=== PATIENT | female | born 1995 | race Caucasian/White ===

== ENCOUNTER 2023-07-04 08:03 | Emergency (ER) | payer MEDICAID ==
[~2023-07-04] VITALS: Ht 160 cm; Wt 83.4 kg
[~2023-07-04 08:03] MED LIST: AZITHROMYCIN250 MG PO; IBUPROFEN400 MG PO; PROVENTIL HFA6.7 GM INH; TUSSIONEX PENN480 ML PO; ZITHROMAX250 MG PO
[2023-07-04] MEDS ORDERED: AMOXICILLIN/CLAVULANATE K 875 MG TAB PO ONE (09:00)
[2023-07-04] MEDS ORDERED: TETANUS-DIPHTHERIA TOXOIDS/PF 0.5 ML VIAL IM ONE (09:00)
[2023-07-04] MEDS ORDERED: DIPHTH,PERTUSS(ACELL),TET VAC 0.5 ML SYRINGE IM ONE (09:15)
[2023-07-04] MEDS ORDERED: AMOX TR-K CLV1 EAC1 PO (09:48)
[2023-07-04 09:54] VITALS: BP 122/80
[2023-07-05] MEDS ORDERED: AMOXICILLIN/CLAVULANATE K 875 MG TAB PO SCH
== END 2023-07-04 09:54 | disposition home or self-care (01) ==
LOC: ED 08:03
DX: S60.450A Superficial foreign body of right index finger, initial encounter (principal); L08.9 Local infection of the skin and subcutaneous tissue, unspecified; W45.8XXA Other foreign body or object entering through skin, initial encounter; Y93.89 Activity, other specified; Z88.5 Allergy status to narcotic agent
CPT/HCPCS: 10120; 73140; 90471; 90715; 99283-25

== ENCOUNTER 2023-07-07 19:46 | Emergency (ER) | payer MEDICAID ==
[~2023-07-07] VITALS: Ht 160 cm; Wt 81.5 kg
[~2023-07-07 19:46] MED LIST changes: +AMOX TR-K CLV1 EAC1 PO
--- OUTSIDE RECORDS SUMMARY | 2023-07-07 19:52 | XMS ---
PreManage Notification: EUGENIO LOPES Security Lapel Baster Events No recent Security Events currently on file CRITERIA MET - [facility] - 2 Visits in 30 Days CARE PROVIDERS SMOOTH [facility] Current PHONE: [phone] Kaleigh has no Care Guidelines for this patient. E.DBetsy VISIT COUNT (12 MO.) [address] 1 [facility] Mariah TOTAL 11 NOTE: Visits indicate total known visits. 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 DIAGNOSES: - Activity, other specified - Allergy status to narcotic agent - Local infection of the skin and subcutaneous tissue, unspecified - Other foreign body or object entering through skin, initial encounter - Superficial foreign body of right index finger, initial encounter 03/15/2023 18:23 [facility] TYPE: Emergency DIAGNOSES: - Abscess of the breast and nipple - Mastitis without abscess - Personal history of diseases of the skin and subcutaneous tissue - Skin Problem 03/13/2023 10:40 [facility] TYPE: Emergency DIAGNOSES: - Abscess - Boil 01/25/2023 11:27 [facility] TYPE: Emergency DIAGNOSES: - Acute upper respiratory infection, unspecified - COUGH 09/26/2022 21:26 [facility] TYPE: Emergency DIAGNOSES: - Cutaneous abscess of right upper limb - Rash - skin condition right shoulder [facility] DI[facility]: - Cellulitis 09/23/2022 05:25 [facility] TYPE: Emergency DIAGNOSES: - Skin Problem 09/20/2022 13:32 [facility] TYPE: Emergency DIAGNOSES: - Followup Cellulitis 09/18/2022 21:59 [facility] TYPE: Emergency DIAGNOSES: - Cellulitis of right upper limb - Abscess 08/14/2022 20:42 [facility] TYPE: Emergency DIAGNOSES: - Sunburn of second degree - Sunburn INPATIENT VISIT TRACKING (12 MO.) No inpatient visits to display in this time frame [id number]
[2023-07-07] MEDS ORDERED: SODIUM CHLORIDE 0.9% 1,000 ML IV ONE (20:30)
[2023-07-07] MEDS ORDERED: HYDROmorphone HCL 1 MG/ML SYR IV ONE (20:45)
[2023-07-07] MEDS ORDERED: ondansetron HCL 4 MG/2 ML VIAL IV ONE (20:45)
[2023-07-07 20:46] LABS: HEMATOCRIT 41.4 % (35.0-50.0); HEMOGLOBIN 13.2 g/dL (12.0-18.0); MCH 27.3 (27-36); MCHC 31.9 g/dl (30-36); MCV 85.4 fl (81-99); PLATELET COUNT 367 K/uL (140-440); RBC 4.85 M/ul (4.3-5.7); RDW 13.7 (10.5-15.0)
[2023-07-07 20:58] LABS: BANDS, MANUAL DIFF 1; EOSINOPHILS, MANUAL DIFF 1; LYMPHOCYTES, MANUAL DIFF 14; MONOCYTES, MANUAL DIFF 5; NEUTROPHILS, MANUAL DIFF 79
[2023-07-07 21:04] LABS: ALBUMIN 3.6 g/dL (3.4-5.0); ALBUMIN/GLOBULIN RATIO 0.92 (1.1-2.4); ANION GAP 13.5 (7-21); BILIRUBIN, TOTAL 0.6 ng/dL (0.2-1.0); BUN/CREATININE RATIO 12.76 (6.0-28.6); CALCIUM 8.9 mg/dL (8.5-10.1); CREATININE, SERUM 0.94 mg/dL (0.55-1.02); POTASSIUM 3.5 mmol/L (3.5-5.1); PROTEIN, TOTAL 7.5 g/dL (6.4-8.2)
[2023-07-07 21:07] LABS: LACTIC ACID, BLOOD 0.7 mmol/L (0.4-2.0)
[2023-07-07] MEDS ORDERED: HYDROmorphone HCL 1 MG/ML SYR IV PRN (22:15)
[2023-07-08] MEDS ORDERED: DAPTOmycin 500 MG/10 ML VIAL IV ONE (00:15)
[2023-07-08] MEDS ORDERED: diazePAM 10 MG/2 ML SYR IV ONE (01:00)
[2023-07-08] MEDS ORDERED: ETOMIDATE 40 MG/20 ML VIAL IV ONE (03:00)
[2023-07-08] MEDS ORDERED: ALBUTEROL SULFATE 0.5% 2.5 MG/0.5 ML VIAL INH ONE (06:45)
[2023-07-08] MEDS ORDERED: HYDROmorphone HCL 2 MG TAB PO ONE (07:15)
[2023-07-08 09:57] VITALS: BP 110/63
== END 2023-07-08 09:50 | disposition short-term general hospital (02) ==
LOC: ED 19:46
PROVIDERS: Family Medicine
DX: M65.9 Synovitis and tenosynovitis, unspecified (principal); L02.511 Cutaneous abscess of right hand; F17.200 Nicotine dependence, unspecified, uncomplicated; Z88.2 Allergy status to sulfonamides; Z88.5 Allergy status to narcotic agent; Z88.8 Allergy status to other drugs, medicaments and biological substances
CPT/HCPCS: 29125; 36415; 73201; 80053; 83605; 84703; 85025; 99284-25; J0878; J1170; J2405; J3360; J7030; Q9967

== ENCOUNTER 2024-12-05 11:28 | Emergency (ER) | payer OTHER ==
[~2024-12-05] VITALS: Ht 160 cm; Wt 81.0 kg
[2024-12-05] MEDS ORDERED: AMOX TR-K CLV1 EAC1 PO (11:47)
[2024-12-05] MEDS ORDERED: CLINDAMYCIN PHOSPHATE/D5W 600 MG/50 ML PIGGYBACK IV ONE (12:15)
[2024-12-05] MEDS ORDERED: DEXAMETHASONE SOD PHOS 10 MG/ML VIAL IV ONE (12:15)
[2024-12-05] MEDS ORDERED: ONDANSETRON 4 MG TAB ODT SL ONE (13:00)
[2024-12-05] MEDS ORDERED: HYDROCODONE/ACETA 5/325 TAB PO ONE (13:00)
[2024-12-05] MEDS ORDERED: CLINDAMYCIN HC300 MG PO (13:06)
[2024-12-05] MEDS ORDERED: HYDROCODON-ACE1 EA10 PO (13:06)
[2024-12-05 13:17] VITALS: BP 118/82
== END 2024-12-05 13:19 | disposition home or self-care (01) ==
LOC: ED 11:28
DX: K08.89 Other specified disorders of teeth and supporting structures (principal); F17.200 Nicotine dependence, unspecified, uncomplicated; Z88.5 Allergy status to narcotic agent; Z88.2 Allergy status to sulfonamides; Z88.8 Allergy status to other drugs, medicaments and biological substances
CPT/HCPCS: 96365; 96375; 99282-25; A9270; J1100